=== PATIENT | female | born 1945 | race Caucasian/White ===

== ENCOUNTER 2022-10-16 16:42 | Emergency (ER) | payer MEDICARE, OTHER, SELFPAY ==
[2022-10-16 16:55] VITALS: BP 155/76; PULSE 66; RESP 18; TEMP 36.6; O2SAT 95; BMI 27.4
--- NOTE | 2022-10-16 17:39 | ED.EYEPROB1 ---
HPI - Eye Problem General Chief complaint: Eye Problems Stated complaint: EYE REDNESS Time Seen by Provider: 10/16/22 17:30 Source: patient Mode of arrival: walk-in Limitations: no limitations History of Present Illness HPI Narrative: 77-year-old female presents her chief complaint left upper eyelid redness. Patient's been treated for a stye recently. There is a stye noticed left corner medial calf since region. No eye pain itself redness or drainage from the eye. Tenderness the eyelid is noted. Related Data Allergies Allergy/AdvReac Type Severity Reaction Status Date / Time No Known Drug Allergies Allergy Verified 10/16/22 16:59 Review of Systems ROS Narrative All Systems are negative except as noted/marked.All systems reviewed and otherwise negative Exam Narrative Exam Narrative: General: The patient appears well and in no apparent distress. Patient is resting comfortably on cart. Skin: Warm, dry, no pallor noted. Head: Normocephalic, atraumatic Neck: Supple, trachea mid-line, no tenderness, no lymphadenopathy Eye: Normal extraocular motion, pupils were equal round and reactive to light, the patient had no pain with extraocular motion. The patient had no involvement over the pupil. There was evidence of conjunctival injection. The patient's eyelid was everted and swept with no evidence of foreign body. Stye noted to the medial canthus The patient has minimal swelling of the upper right eyelid. No evidence of hyphema, dendritic lesion or Narrow angle. No corneal ulcerations or hypopyn. No evidence of preseptal cellulitis or orbital cellulitis. Ears, Nose, Mouth, and Throat: oral mucosa is moist Respiratory: Patient is in no distress Neurological: A&O x4, normal speech Psychiatric: Cooperative Constitutional Vital Signs - 24 hr 10/16/22 16:55 Temperature 98 F Pulse Rate [Monitor] 66 Respiratory Rate 18 Blood Pressure [Left Arm] 155/76 H Pulse Oximetry 95 Oxygen Delivery Method Room Air Course Course Hospital Course: She has examination consistent with blepharitis and stye. Patient's is using neomycin ointment. Patient also has some upper lid involvement for concern of blepharitis. She was placed on Keflex. Patient told to use warm compresses and Frankie and Frankie baby shampoo to help clean and irrigate the area. Vital Signs Vital signs: Vital Signs Temperature 98 F 10/16/22 16:55 Pulse Rate 66 10/16/22 16:55 Respiratory Rate 18 10/16/22 16:55 Blood Pressure 155/76 H 10/16/22 16:55 Pulse Oximetry 95 10/16/22 16:55 Oxygen Delivery Method Room Air 10/16/22 16:55 Temperature 98 F 10/16/22 16:55 Pulse Rate 66 10/16/22 16:55 Respiratory Rate 18 10/16/22 16:55 Blood Pressure 155/76 H 10/16/22 16:55 Pulse Oximetry 95 10/16/22 16:55 Oxygen Delivery Method Room Air 10/16/22 16:55 MDM - Eye Problem MDM Narrative Medical decision making narrative: Examination consistent with blepharitis, stye of the right eye Medical Records Attestation: I reviewed the patient's medical records. Discharge Plan Discharge Chief Complaint: Eye Problems Clinical Impression: Stye external, Blepharitis of eyelid of right eye Patient Disposition: Home, Self-Care Time of Disposition Decision: 17:44 Condition: Good Stand Alone Forms: Portal Instructions Referrals: Shaikh Granda MD [Primary Care Provider] - 1 week
--- NOTE | 2022-10-16 17:58 | PC.NURSE ---
d/c instructions complete, pt verbalized understanding and prescription sent home with pt. gait steady to exit
== END 2022-10-16 18:02 | disposition home or self-care (01) ==
LOC: ER 18:16
PROVIDERS: Emergency Provider Emergency Medicine Emergency Medical Services; PCP Internal Medicine
DX: H00.011 Hordeolum externum right upper eyelid (principal); H01.001 Unspecified blepharitis right upper eyelid
CPT/HCPCS: 99281

== ENCOUNTER 2023-11-10 14:59 | Emergency (ER) | payer MEDICARE, OTHER, SELFPAY ==
[2023-11-10] VITALS (13 sets, daily range): BP systolic 144–178; BP diastolic 73–96; PULSE 76–113; TEMP 37.3; O2SAT 95–99; BMI 26.5
--- NOTE | 2023-11-10 15:33 | ECG_ITS ---
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
--- NOTE | 2023-11-10 15:34 | XR_ITS ---
The [address] [address] Patient Name: DEE SWEET MRN: [id number] date: 1945 Sex: F Assigned Patient Location: ER Current Patient Location: ED.MAIN Accession/Order Number: [id number] Exam Date: 11/10/2023 15:50 Report Date: 11/10/2023 16:49 At the request of: ZBIGNIEW OLIVAS Procedure: XR chest 1V EXAM: XR chest 1V TECHNIQUE: Single AP view chest HISTORY: hypertension COMPARISON: 03/29/2016 FINDINGS: The heart and mediastinum are unremarkable. The lung del ros[place] are clear of any acute infiltrate, effusion or mass. No acute bony abnormality. XR/XR chest 1V IMPRESSION: No acute pulmonary disease. Electronically authenticated by: DEBBI WESLEY Date: 11/10/2023 16:49
--- NOTE | 2023-11-10 15:35 | ED.GENADUL1 ---
HPI HPI - General Adult General Chief complaint: Arrhythmia/Palpitations Stated complaint: HYPERTENSION Time Seen by Provider: 11/10/23 15:24 Source: patient Mode of arrival: walk-in Limitations: no limitations History of Present Illness HPI narrative: Patient is an 78-year-old female presents to the ER for evaluation of high blood pressure. Patient states this morning she felt jittery. She denies any headache or visual disturbance. Patient has a pertinent history of 1 kidney from surgical removal 10 years ago patient believes from renal cancer. Patient states she drinks plenty of water does not feel dehydrated. She has been on the same medications for some time and denies any palpitations chest pain or shortness of breath. She denies any caffeine use. Patient states she recently stopped taking her daily antihistamine but took it this morning thinking it would possibly help her symptoms. She does not take her blood pressure on a regular basis but noted it to be 196 systolic at home prompting her to come to the ER. Patient appears in no distress with her spouse present at bedside.Patient walks with a brisk steady gait. Onset (ago): day(s) Treatments prior to arrival: Reports other (cetirizine 10mg, ( does not take D )) Related Data Home Medications ?Medication ?Instructions ?Recorded ?Confirmed amlodipine 10 mg tablet 10 mg PO DAILY 10/16/22 11/10/23 atorvastatin 40 mg tablet 40 mg PO DAILY 10/16/22 11/10/23 cetirizine 10 mg tablet 10 mg PO DAILY 10/16/22 11/10/23 hydrochlorothiazide 25 mg tablet 25 mg PO DAILY 10/16/22 11/10/23 losartan 100 mg tablet 100 mg PO DAILY 10/16/22 11/10/23 aspirin 325 mg tablet 325 mg PO DAILY 11/10/23 11/10/23 memantine 10 mg tablet 10 mg PO .q12 11/10/23 11/10/23 Allergies Allergy/AdvReac Type Severity Reaction Status Date / Time No Known Drug Allergies Allergy Verified 11/10/23 15:09 Opioid HPI Opioid Management Most Recent Opioid Data: Last Pain Scale 3 11/10/23 15:44 Last JUL Pain Assessment 11/10/23 15:44 Review of Systems ROS Constitutional Denies: fever or chills Eyes Denies: change in vision Ears, nose, mouth, and throat Denies: throat pain or neck pain Cardiovascular Denies: chest pain or palpitations Respiratory Denies: shortness of breath or cough Gastrointestinal Denies: abdominal pain, nausea, vomiting or diarrhea Genitourinary Denies: painful urination or urinary frequency Musculoskeletal Denies: back pain, neck pain, extremity pain or extremity swelling Integumentary/Breast Denies: rash or itching Neurological Denies: headache Psychiatric Denies: anxiety or mood swings Hematologic/Lymphatic Denies: easy bruising Allergic/Immunologic Denies: hives Exam Narrative Exam Narrative: Vital signs and nurses notes reviewed. The patient is not hypoxic. General: The patient appears well and in no apparent distress. Patient is resting comfortably on cart. Skin: Warm, dry, no pallor noted. The patient has no evidence of rash, petechiae, or purpura noted. Head: Normocephalic, atraumatic, no temporal arterial tenderness Neck: Supple, trachea mid-line, no tenderness, no lymphadenopathy. No meningeal signs. No nuchal rigidity. Eye: Pupils are equal, round and reactive to light, EOMI Ears, Nose, Mouth, and Throat: Oral mucosa is moist, TMs are clear bilaterally, no hemotympanum noted. Cardiovascular: Regular Rate and Rhythm Respiratory: Patient is in no distress, no accessory muscle use, lungs are clear to auscultation, no wheezing, rales or rhonchi Back: non-tender, no CVA tenderness Musculoskeletal: normal ROM, no tenderness, no swelling, normal strength 5/5. Normal pulses to radial 2+ bilaterally and 2+ at DP and PT bilaterally and symmetrically. GI: Normal bowel sounds, no tenderness to palpation, no masses appreciated. No rebound, guarding, or rigidity noted. Neurological: A&O x4, normal equal chief knowledge officer strength, The patient is not ataxic. The patient has normal speech. The patient has normal coordination. . Normal motor and sensory observed. Psychiatric: Cooperative Constitutional Vital Signs, click to edit/add: Last Vital Signs Temp 99.1 F 11/10/23 15:10 Pulse 83 11/10/23 16:20 Resp 17 11/10/23 16:20 BP 148/73 H 11/10/23 16:00 Pulse Ox 98 11/10/23 16:26 O2 Del Method Room Air 11/10/23 16:26 Course Vital Signs Vital signs: Vital Signs Temperature 99.1 F 11/10/23 15:10 Pulse Rate 85 11/10/23 15:10 Respiratory Rate 14 11/10/23 15:10 Blood Pressure 178/96 H 11/10/23 15:10 Pulse Oximetry 95 11/10/23 15:10 Oxygen Delivery Method Room Air 11/10/23 15:10 Temperature 99.1 F 11/10/23 15:10 Pulse Rate 83 11/10/23 16:20 Respiratory Rate 17 11/10/23 16:20 Blood Pressure 148/73 H 11/10/23 16:00 Pulse Oximetry 98 11/10/23 16:26 Oxygen Delivery Method Room Air 11/10/23 16:26 Medical Decision Making MDM Narrative Medical decision making narrative: Patient reports feeling jittery upon waking up this morning. She denies having any pain or discomfort. No headache. She recently stopped her daily allergy tablet for several days and then tried to take it today to see if it made a difference in her symptoms. She denies any other medication symptom changes. She denies any fevers or chills. Patient noted that she does not take her blood pressure on a regular basis but since she was feeling this way took it and noted it was high possibly contributing to the way she feels. She did take her medication today. Patient appears in no distress. Patient reevaluated, feeling improved, she received Tylenol and meclizine 12.5 mg. We discussed her Pressure which improved on its own down to 144/86. Heart rate has been 80 bpm sinus rhythm. Her TSH was slightly elevated but T4 was within normal limits. We discussed her kidney function and recommend continue with p.o. fluids and follow-up to PCP to compare to prior results as patient only has 1 kidney by history. She does not have any pain or discomfort. She walks with a brisk steady gait. We discussed her concerns with feeling jittery and concerned it was related to high blood pressure. Patient Verbalized the importance for follow-up, her troponin is within normal limits with her symptoms starting this morning around 9:30 AM. The patient is to followup with primary care physician in next 2-3 days or to return to the emergency department should any of the signs or symptoms worsen or new symptoms develop. Patient had questions answered. The patient agrees with the following Diagnosis and Treatment plan and the patient will be discharged home. Lab Data Lab results reviewed: Yes I reviewed the patient's lab results Lab results narrative: T 4 within normal limits Labs: Lab Results 11/10/23 Range/Units 15:42 WBC 8.7 (4.0-11.0) 10^3/uL RBC 4.82 (4.20-5.40) 10^6/uL Hgb 14.9 (12.0-16.0) g/dL Hct 44.2 (36.0-48.0) % MCV 91.7 (81.0-99.0) fL MCH 30.9 (26.7-34.0) pg MCHC 33.7 (29.9-35.2) g/dL RDW 12.5 (11.0-15.0) % Plt Count 247 (150-450) 10^3/uL MPV 8.1 L (9.5-13.5) fL Neut % (Auto) 66.8 (43.0-75.0) % Lymph % (Auto) 20.9 (20.5-60.0) % [place] % (Auto) 9.7 (1.7-12.0) % Eos % (Auto) 1.8 (0.9-7.0) % Baso % (Auto) 0.6 (0.2-2.0) % Neut # (Auto) 5.8 (1.4-6.5) 10^3/uL Lymph # (Auto) 1.8 (1.2-3.8) 10^3/uL [place] # (Auto) 0.8 (0.3-0.8) 10^3/uL Eos # (Auto) 0.2 (0.0-0.7) 10^3/uL Baso # (Auto) 0.1 (0.0-0.1) 10^3/uL Abs Immat Gran (auto) 0.02 (0.00-0.03) 10^3/uL Imm/Tot Granulo (auto) 0.2 (0.0-0.5) % Sodium 136 (136-145) mmol/L Potassium 3.5 (3.5-5.1) mmol/L Chloride 97 L (98-107) mmol/L Carbon Dioxide 31.4 (21.0-32.0) mmol/L Anion Gap 11.1 BUN 20.0 H (7.0-18.0) mg/dL Creatinine 1.33 H (0.55-1.02) mg/dL Est GFR ( Amer) 46 L (>=60) Est GFR (Non-Af Amer) 38 L (>=60) BUN/Creatinine Ratio 15.0 Glucose 93 (74-106) mg/dL Calcium 9.3 (8.5-10.1) mg/dL Total Bilirubin 0.5 (0.2-1.0) mg/dL AST 16 (15-37) U/L ALT 27 (14-59) U/L Alkaline Phosphatase 83 (46-116) U/L Troponin I High Sens 18.0 (4.0-51.3) pg/mL Total Protein 7.5 (6.4-8.2) g/dL Albumin 4.3 (3.4-5.0) g/dL Globulin 3.2 g/dL Albumin/Globulin Ratio 1.3 Free T4 1.00 (0.76-1.46) ng/dL TSH & Free T4 Interp 3.800 H (0.358-3.740) uIU/mL Urine Color Lt. yellow (YELLOW) Urine Clarity Clear (CLEAR) Urine pH 7.0 (5.0-9.0) Ur Specific [place] 1.010 (1.005-1.025) Urine Protein Negative (NEG/TRACE) mg/dL Urine Glucose (UA) Negative (NEGATIVE) mg/dL Urine Ketones Negative (NEGATIVE) mg/dL Urine Occult Blood Trace-i (NEGATIVE) Urine Nitrite Negative (NEGATIVE) Urine Bilirubin Negative (NEGATIVE) Urine Urobilinogen 0.2 (0.2-1.0) EU/dL Ur Leukocyte Esterase Negative (NEGATIVE) Imaging Data Chest x-ray: Attestation: I personally reviewed and interpreted this imaging study as follows: My impression: one View chest x-ray no evidence of infiltrate, no cardiomegaly no pneumothorax. ECG Data Attestation: I personally reviewed and interpreted this ECG as follows: Interpretation: EKG interpretation: Emergency Department physician interpretation, normal sinus rhythm 85 bpm, no ectopy, no ST segment elevation, right bundle branch block. Discharge Plan Discharge Stand Alone Forms: Portal Instructions Chief Complaint: Arrhythmia/Palpitations Clinical Impression: Hypertension Patient Disposition: Home, Self-Care Time of Disposition Decision: 16:46 Condition: Good Prescriptions / Home Meds: No Action amlodipine 10 mg tablet 10 mg PO DAILY atorvastatin 40 mg tablet 40 mg PO DAILY hydrochlorothiazide 25 mg tablet 25 mg PO DAILY losartan 100 mg tablet 100 mg PO DAILY cetirizine 10 mg tablet 10 mg PO DAILY memantine 10 mg tablet 10 mg PO .q12 aspirin 325 mg tablet 325 mg PO DAILY Print Language: Bengali Additional Instructions: Recommend contacting family doctor on Saturday to discuss blood pressure rechecks in the office with the symptoms. He will need to compare labs done today with prior labs performed through his office to ensure labs are base line or if medication adjustments are needed. Referrals: Shaikh Granda MD [Primary Care Provider] - As soon as possible
[2023-11-10] MEDS: ACETAMINOPHEN 500 MG TABLET 1000 MG PO (15:44)
[2023-11-10] MEDS: MECLIZINE HCL 12.5 MG TABLET PO (15:44)
[2023-11-10 15:57] LABS: Basophils Absolute Auto 0.1 10^3/uL (0.0-0.1); Basophils Percent Auto 0.6 % (0.2-2.0); Eosinophils Absolute Auto 0.2 10^3/uL (0.0-0.7); Eosinophils Percent Auto 1.8 % (0.9-7.0); Hematocrit 44.2 % (36.0-48.0); Hemoglobin 14.9 g/dL (12.0-16.0); Immature Granulocytes Abs Auto 0.02 10^3/uL (0.00-0.03); Immature Granulocytes Pct Auto 0.2 % (0.0-0.5); Lymphocytes Absolute Auto 1.8 10^3/uL (1.2-3.8); Lymphocytes Percent Auto 20.9 % (20.5-60.0); Mean Corpuscular HGB Conc 33.7 g/dL (29.9-35.2); Mean Corpuscular Hemoglobin 30.9 pg (26.7-34.0); Mean Corpuscular Volume 91.7 fL (81.0-99.0); Mean Platelet Volume 8.1 fL (9.5-13.5); Monocytes Absolute Auto 0.8 10^3/uL (0.3-0.8); Monocytes Percent Auto 9.7 % (1.7-12.0); Neutrophils Absolute Auto 5.8 10^3/uL (1.4-6.5); Neutrophils Percent Auto 66.8 % (43.0-75.0); Platelet Count 247 10^3/uL (150-450); Red Blood Count 4.82 10^6/uL (4.20-5.40); Red Cell Distribution Width 12.5 % (11.0-15.0); White Blood Count 8.7 10^3/uL (4.0-11.0)
[2023-11-10 16:22] LABS: Alanine Aminotransferase 27 U/L (14-59); Albumin Globulin Ratio 1.3; Albumin Level 4.3 g/dL (3.4-5.0); Alkaline Phosphatase 83 U/L (46-116); Anion Gap 11.1; Aspartate Amino Transferase 16 U/L (15-37); Bilirubin Total 0.5 mg/dL (0.2-1.0); Calcium 9.3 mg/dL (8.5-10.1); Carbon Dioxide 31.4 mmol/L (21.0-32.0); Chloride 97 mmol/L (98-107); Estimated GFR (African America 46 (>=60); Estimated GFR (Non-African Ame 38 (>=60); Globulin 3.2 g/dL; Glucose 93 mg/dL (74-106); Potassium 3.5 mmol/L (3.5-5.1); Sodium 136 mmol/L (136-145); Total Protein 7.5 g/dL (6.4-8.2)
[2023-11-10 16:35] LABS: Bilirubin Urine NEGATIVE (NEGATIVE); Blood Urine TRACE-I (NEGATIVE); Clarity Urine CLEAR (CLEAR); Color Urine LT. YELLOW (YELLOW); Glucose Urine UA NEGATIVE (NEGATIVE); Ketones Urine NEGATIVE (NEGATIVE); Leukocyte Esterase Urine NEGATIVE (NEGATIVE); Nitrite Urine NEGATIVE (NEGATIVE); Protein Urine NEGATIVE (NEG/TRACE); Urine Microscopic Indicated YES; Urobilinogen Urine 0.2 EU/dL (0.2-1.0)
[2023-11-10 16:44] LABS: Bacteria Urine NONE SEEN #/HPF (NONE SEEN); Cast Seen? NONE SEEN #/LPF (NONE SEEN); Crystals Seen? None Seen #/HPF (None Seen); Mucus Urine NONE SEEN (NONE SEEN); Squamous Epithelial Cell Urine RARE #/LPF (NONE/RARE); Urine Culture Indicated NO; WBC Urine 0-2 #/HPF (NONE SEEN)
== END 2023-11-10 17:02 | disposition home or self-care (01) ==
PROVIDERS: Personal Emergency Response Attendant; Emergency Provider Emergency Medicine; PCP Internal Medicine
DX: I10 Essential (primary) hypertension (principal); Z90.5 Acquired absence of kidney
CPT/HCPCS: 36415; 71045; 80053; 81001; 84439; 84443; 84484; 85025; 93005; 99285